=== PATIENT | female | born 1995 | race African-American/Black ===

== ENCOUNTER 2018-05-07 17:35 | Emergency (ER) | payer MEDICAID ==
[~2018-05-07] VITALS: Ht 160 cm; Wt 59.0 kg
[2018-05-07] MEDS ORDERED: ACETAMINOPHEN 325MG TABLET PO ONE (20:00)
[2018-05-07 21:08] VITALS: BP 130/50
== END 2018-05-07 21:11 | disposition home or self-care (01) ==
LOC: ER 17:35
DX: R07.89 Other chest pain (principal); F12.10 Cannabis abuse, uncomplicated; Z98.890 Other specified postprocedural states
CPT/HCPCS: 71045; 81025; 93005; 99284